=== PATIENT | female | born 1960 | race American Indian/Alaskan Native ===

== ENCOUNTER 2018-07-31 08:41 | Outpatient (CLI) | payer MEDICARE ==
[2018-07-31 11:51] LABS: Hematocrit 35.9 % (30.3-42.9); Hemoglobin 11.8 gm/dl (10.1-14.3); Mean Corpuscular HGB Conc 33 % (30-34); Mean Corpuscular Volume 83 fl (79-97); Platelet Count 185 K/mm3 (140-440); Red Blood Count 4.35 M/mm3 (3.65-5.03); Red Cell Distribution Width 13.2 % (13.2-15.2)
[2018-07-31 12:04] LABS: Alanine Aminotransferase 6 units/L (7-56); Albumin 4.2 g/dL (3.9-5); BUN/Creatinine Ratio 18; Blood Urea Nitrogen 14 mg/dL (7-17); Calcium 9.2 mg/dL (8.4-10.2); Chol/HDL Ratio 2.56 %; HDL Cholesterol 73 mg/dL (40-59); Hemolysis Index 0; LDL Cholesterol,Direct 116 mg/dL (50-130)
[2018-08-04 13:29] LABS: Vitamin D, 25-OH, D2 <4 ng/mL
== END 2018-07-31 08:42 | disposition home or self-care (01) ==
LOC: LAB 08:41
PROVIDERS: ATTEND Internal Medicine
DX: Z13.220 Encounter for screening for lipoid disorders (principal); Z13.1 Encounter for screening for diabetes mellitus; E55.9 Vitamin D deficiency, unspecified; R79.89 Other specified abnormal findings of blood chemistry
CPT/HCPCS: 36415; 80053; 80061; 82306; 83036; 85027

== ENCOUNTER 2018-08-21 09:17 | Outpatient (CLI) | payer MEDICARE ==
--- NOTE | 2018-08-21 14:52 | Mammography Report ---
BONE DEXA:08/21/18 09:17:00 CLINICAL: Postmenopausal. No comparison. TECHNIQUE: Two site bone DEXA performed on an Hologic scanner. FINDINGS: The average BMD of the lumbar spine L1-L4 is 0.683g/cm squared with a T-score of -3.3 and a Z-score of -2.8. The average BMD of the left hip is 0.796g/cm squared with a T-score of -1.2 and a Z-score of 0.8. IMPRESSION: 1. WHO classification: Osteoporosis with high fracture risk based on lumbar spine measurements. 2. WHO classification: Osteopenia with increased fracture risk based on left hip measurements. RECOMMENDATION: Clinical correlation and routine screening. DEFINITIONS: BMD = Bone Mineral Density T-score = BMD related to mean peak bone mass of young adult (mean expressed in Standard Deviation) Z-score = Age matched BMD expressed in SD World Health Organization (WHO) Diagnostic Criteria Normal T-score > -1 SD Osteopenia T-score between -1 and -2.4 SD Osteoporosis T-score -2.5 SD or below NOTE: BMD is not the only risk factor for fracture. One should also consider factors such as the patient's age, risk of falling, previous osteoporotic fracture, family history of osteoporotic fractures, current smoker, and low body weight. Z-scores are not calculated if >80 years of age.
== END 2018-08-21 09:18 | disposition home or self-care (01) ==
LOC: MAMMO 09:17
PROVIDERS: ATTEND Internal Medicine
DX: M81.0 Age-related osteoporosis without current pathological fracture (principal); M85.88 Other specified disorders of bone density and structure, other site; Z78.0 Asymptomatic menopausal state
CPT/HCPCS: 77080

== ENCOUNTER 2018-12-23 09:05 | Outpatient (CLI) | payer MEDICARE | END 2018-12-23 09:06 | disposition home or self-care (01) | LOC: LAB 09:05 | PROVIDERS: ATTEND Internal Medicine | DX: Z13.29 Encounter for screening for other suspected endocrine disorder (principal); M13.0 Polyarthritis, unspecified; I10 Essential (primary) hypertension | CPT/HCPCS: 36415; 84443; 85652; 86140 ==

== ENCOUNTER 2020-04-20 10:51 | Outpatient (CLI) | payer MEDICARE ==
[2020-04-20 12:17] LABS: Chol/HDL Ratio 2.42 %
== END 2020-04-20 10:52 | disposition home or self-care (01) ==
LOC: LAB 10:51
PROVIDERS: ATTEND Internal Medicine
DX: D51.9 Vitamin B12 deficiency anemia, unspecified (principal); E78.5 Hyperlipidemia, unspecified; E55.9 Vitamin D deficiency, unspecified
CPT/HCPCS: 36415; 80061; 82306; 82607

== ENCOUNTER 2020-09-19 08:47 | Outpatient (CLI) | payer MEDICARE ==
[2020-09-19 09:43] LABS: Alanine Aminotransferase 6 units/L (7-56); Albumin 4.1 g/dL (3.9-5); Blood Urea Nitrogen 19 mg/dL (7-17); Calcium 9.4 mg/dL (8.4-10.2); Chol/HDL Ratio 2.45 %; HDL Cholesterol 68 mg/dL (40-59); Hemolysis Index 2; LDL Cholesterol,Direct 105 mg/dL (50-130)
[2020-09-19 09:46] LABS: Basophils % (Auto) 0.6 % (0.0-1.8); Eosinophils # (Auto) 0.1 K/mm3 (0.0-0.4); Eosinophils % (Auto) 2.6 % (0.0-4.3); Hematocrit 34.4 % (30.3-42.9); Hemoglobin 11.5 gm/dl (10.1-14.3); Lymphocytes # (Auto) 2.4 K/mm3 (1.2-5.4); Lymphocytes % (Auto) 53.2 % (13.4-35.0); Mean Corpuscular HGB Conc 33 % (30-34); Mean Corpuscular Volume 84 fl (79-97); Monocytes # (Auto) 0.3 K/mm3 (0.0-0.8); Monocytes % (Auto) 7.3 % (0.0-7.3); Platelet Count 168 K/mm3 (140-440); Red Blood Count 4.12 M/mm3 (3.65-5.03); Red Cell Distribution Width 13.3 % (13.2-15.2)
[2020-09-19 09:52] LABS: BUN/Creatinine Ratio 27
[2020-09-23 12:32] LABS: Vitamin D, 25-OH, D2 <4 ng/mL
== END 2020-09-19 08:48 | disposition home or self-care (01) ==
LOC: LAB 08:47
PROVIDERS: ATTEND Internal Medicine
DX: Z13.1 Encounter for screening for diabetes mellitus (principal); Z13.29 Encounter for screening for other suspected endocrine disorder; Z13.220 Encounter for screening for lipoid disorders; Z00.00 Encounter for general adult medical examination without abnormal findings; M79.7 Fibromyalgia; E55.9 Vitamin D deficiency, unspecified; I10 Essential (primary) hypertension
CPT/HCPCS: 36415; 80053; 80061; 82306; 83036; 84443; 85025

== ENCOUNTER 2021-03-30 09:52 | Outpatient (CLI) | payer MEDICARE ==
[2021-03-30 10:50] LABS: Chol/HDL Ratio 2.33 %
== END 2021-03-30 09:53 | disposition home or self-care (01) ==
LOC: LAB 09:52
PROVIDERS: ATTEND Internal Medicine
DX: I10 Essential (primary) hypertension (principal)
CPT/HCPCS: 36415; 80061

== ENCOUNTER 2021-08-15 10:48 | Outpatient (CLI) | payer MEDICARE ==
--- NOTE | 2021-08-15 11:50 | XRay Report ---
RIGHT SHOULDER 3 VIEWS INDICATION / CLINICAL INFORMATION: M25.511 PAIN IN RIGHT SHOULDER COMPARISON: None available. FINDINGS: BONES / JOINT(S): No acute fracture or subluxation. There is mild acromioclavicular degenerative cortes ge. SOFT TISSUES: No significant abnormality. ADDITIONAL FINDINGS: None. IMPRESSION: No acute findings. Signer Name: Eric Clemons MD Signed: 08/15/2021 11:45 AM Workstation Name: [id number]
== END 2021-08-15 10:49 | disposition home or self-care (01) ==
LOC: XRAY 10:48
PROVIDERS: ATTEND Internal Medicine
DX: M19.011 Primary osteoarthritis, right shoulder (principal)